=== PATIENT | female | born 1975 | race Two or more races ===

== ENCOUNTER 2019-03-21 13:46 | Observation (INO) | payer MEDICAID ==
[2019-03-21] MEDS ORDERED: PREN-96 PO (16:15)
== END 2019-03-21 18:43 | disposition home or self-care (01) | DRG 566 ==
LOC: LDRP 13:46
PROVIDERS: ADMIT Obstetrics & Gynecology; ATTEND Obstetrics & Gynecology
DX: O26.892 Other specified pregnancy related conditions, second trimester (principal); R10.9 Unspecified abdominal pain; O60.02 Preterm labor without delivery, second trimester; Z3A.23 23 weeks gestation of pregnancy
CPT/HCPCS: 59025; 76815; 81002; G0378